=== PATIENT | male | born 1990 | race Caucasian/White ===

== ENCOUNTER 2018-01-09 07:39 | Emergency (ER) | payer SELFPAY ==
[~2018-01-09] VITALS: Ht 167.6 cm; Wt 104.3 kg
[2018-01-09 07:43] VITALS: Ht 167.6 cm; Wt 104.3 kg
[2018-01-09 08:33] VITALS: BP 133/90
== END 2018-01-09 08:34 | disposition home or self-care (01) ==
LOC: ED 07:39
DX: J02.0 Streptococcal pharyngitis (principal)
CPT/HCPCS: J0561